=== PATIENT | female | born 1985 ===

== ENCOUNTER 2018-03-19 13:17 | Emergency (ER) | payer SELFPAY ==
[~2018-03-19] VITALS: Ht 157.5 cm; Wt 80.7 kg
[2018-03-19 13:36] VITALS: Ht 157.5 cm; Wt 80.7 kg
[2018-03-19 18:04] VITALS: BP 111/72
== END 2018-03-19 18:04 | disposition home or self-care (01) ==
LOC: ED 13:17
DX: F10.129 Alcohol abuse with intoxication, unspecified (principal); Z88.8 Allergy status to other drugs, medicaments and biological substances

== ENCOUNTER 2018-03-20 17:53 | Emergency (ER) | payer SELFPAY ==
[~2018-03-20] VITALS: Ht 160 cm; Wt 63.5 kg
[2018-03-20 17:55] VITALS: Ht 160 cm; Wt 63.5 kg
== END 2018-03-20 17:58 | disposition left against medical advice (07) ==
LOC: ED 17:53
DX: F10.129 Alcohol abuse with intoxication, unspecified (principal)